=== PATIENT | female | born 1995 | race Caucasian/White ===

== ENCOUNTER 2023-10-12 16:51 | Emergency (ER) | payer SELFPAY ==
[2023-10-12 16:58] VITALS: BP 132/81; PULSE 73; RESP 18; TEMP 98.9; BMI 30.8
[2023-10-12 18:23] LABS: BASO % 0.4 % (0-2.0); EOS % 2.1 % (0-4.5); HEMATOCRIT 36.5 % (32.4-45.2); HEMOGLOBIN 12.3 GM/dL (10.7-15.3); LYMPH % 34.3 % (8-40); MCHC 33.7 g/dl (32.0-36.0); MEAN CELL VOLUME 85.9 fl (80-96); MEAN PLT VOLUME 8.6 fl (7.5-11.1); MONO % 5.5 % (3.8-10.2); NEUT % 57.7 % (42.8-82.8); PLATELET COUNT 297 10^3/uL (134-434); RBC 4.25 M/mm3 (3.60-5.2); RDW 12.6 % (11.6-15.6); WHITE BLOOD COUNT 11.8 K/mm3 (4.0-10.0)
[2023-10-12 18:26] LABS: EPI CELLS >36 /uL (0-25.1); HYALINE CASTS 1 /uL (0-3.1); URINE APPEARANCE CLOUDY; URINE BACTERIA >9,000 /uL (0-1359); URINE BILIRUBIN NEGATIVE (NEGATIVE); URINE COLOR YELLOW; URINE GLUCOSE (UA) NEGATIVE (NEGATIVE); URINE KETONE TRACE (NEGATIVE); URINE LEUK ESTERASE TRACE (NEGATIVE); URINE NITRITE POSITIVE (NEGATIVE); URINE PROTEIN TRACE (NEGATIVE); URINE RBC 33 /uL (0-23.9); URINE WBC 44 /uL (0-25.8)
[2023-10-12 18:47] LABS: POTASSIUM 3.8 mmol/L (3.5-5.1)
[2023-10-12 18:49] LABS: BLOOD UREA NITROGEN 8.7 mg/dL (7-18)
[2023-10-12 18:53] LABS: CREATININE 0.8 mg/dL (0.55-1.3)
[2023-10-12 18:54] LABS: BILIRUBIN,TOTAL 0.5 mg/dL (0.2-1); TOT PROT 7.7 g/dl (6.4-8.2)
[2023-10-12] MEDS ORDERED: CEPHALEXIN MONOHYDRATE 500 MG CAPSULE (UD) ONE (20:18)
[2023-10-12] MEDS: CEPHALEXIN MONOHYDRATE 500 MG CAPSULE (UD) PO ONE (20:20)
== END 2023-10-12 21:18 | disposition home or self-care (01) ==
LOC: JERFT 16:51 → JER 16:51 → JERFT 21:18
DX: O23.41 Unspecified infection of urinary tract in pregnancy, first trimester (principal); O26.891 Other specified pregnancy related conditions, first trimester; R10.2 Pelvic and perineal pain; Z3A.01 Less than 8 weeks gestation of pregnancy
CPT/HCPCS: 36415; 76817-TC; 80053; 81003; 84702; 84703; 85025; 87086; 87186; 99284-25

== ENCOUNTER 2024-06-09 10:00 | Inpatient (IN) | payer OTHER ==
[2024-06-09] MEDS: LACTATED RINGERS SOLUTION 1,000 ML/1,000 ML INFUS.BAG IV SCH (10:50)
[2024-06-09 11:38] VITALS: BMI 32.4
[2024-06-09 12:38] LABS: ABSOLUTE IMMATURE GRANULOCYTES 0.05 x10^3/uL (0.0-0.031); BASOPHILS # 0.02 x10^3/uL (0.01-0.08); EOSINOPHIL % 0.8 % (0.7-5.8); EOSINOPHILS # 0.09 x10^3/uL (0.04-0.36); HEMATOCRIT 35.6 % (34.1-44.9); HEMOGLOBIN 11.9 g/dL (11.2-15.7); MCHC 33.4 g/dl (32.2-35.5); MEAN CELL VOLUME 88.1 fl (79.4-94.8); MEAN PLT VOLUME 11.2 fl (9.4-12.3); MONOCYTE # 0.63 x10^3/uL (0.24-0.86); MONOCYTE % 5.9 % (4.7-12.5); PLATELET COUNT 204 x10^3/uL (182-369); RDW 12.7 % (12.1-16.5)
[2024-06-09 12:46] LABS: INR 1.03 (0.83-1.09); PROTHROMBIN TIME (PATIENT) 11.2 SEC (9.7-13.0)
[2024-06-09] MEDS ORDERED: OXYTOCIN 30 UNITS in 0.9% NS 30 UNIT/500 ML INFUS.BAG IVPB ONE (12:47)
[2024-06-09 12:49] LABS: ACTIVATED PTT 28.5 SECONDS (25.2-36.5)
[2024-06-09] MEDS: OXYTOCIN 30 UNITS in 0.9% NS 30 UNIT/500 ML INFUS.BAG IVPB SCH (13:00)
[2024-06-09 13:01] LABS: POTASSIUM 4.2 mmol/L (3.5-5.1)
[2024-06-09 13:02] LABS: CALCIUM 9.2 mg/dL (8.5-10.1)
[2024-06-09 13:03] LABS: BLOOD UREA NITROGEN 4.3 mg/dL (7-18)
[2024-06-09 13:06] LABS: CREATININE 0.6 mg/dL (0.55-1.3)
[2024-06-09] MEDS ORDERED: FENTANYL/BUPIVACAINE/NS/PF - PCEA - 50 ML DISP.SYRIN EP ONE (13:48)
[2024-06-09] MEDS: FENTANYL/BUPIVACAINE/NS/PF - PCEA - 50 ML DISP.SYRIN EP SCH (14:35)
[2024-06-09] MEDS ORDERED: NALOXONE HCL 0.4 MG/ML VIAL IVPUSH PRN (14:43)
[2024-06-09] MEDS ORDERED: OXYTOCIN 20 UNITS in 0.9% NS 20 UNIT/1,000 ML INFUS.BAG IV ONE (15:19)
[2024-06-09] MEDS: OXYTOCIN 20 UNITS in 0.9% NS 20 UNIT/1,000 ML INFUS.BAG IV ONE (16:40)
[2024-06-09 17:01] LABS: CORD BASE EXCESS -2.3 mmol/L (0-2); CORD HCO3 23.9 mmHg (20-29); CORD PCO2 46.2 mmHg (30-78); CORD pH 7.332 (7.14-7.44)
[2024-06-09] MEDS ORDERED: oxyCODONE HCL 5 MG TABLET PO PRN (17:06)
[2024-06-09] MEDS ORDERED: METHYLERGONOVINE MALEATE 0.2 MG/1 ML AMP IM PRN (17:06)
[2024-06-09] MEDS ORDERED: BENZOCAINE 20% 57 GM BOTTLE TP PRN (17:06)
[2024-06-09] MEDS ORDERED: BISACODYL 10 MG SUPP.RECT RC PRN (17:06)
[2024-06-09] MEDS ORDERED: BENZOCAINE 28 GM HEMORRHOIDAL OINTMENT TP PRN (17:06)
[2024-06-09] MEDS ORDERED: WITCH HAZEL 50% (TUCKS) 40 PAD/JAR PAD TP PRN (17:06)
[2024-06-09 17:11] LABS: CORD HCO3 25.5 mmHg (20-29); CORD PCO2 60.3 mmHg (30-78); CORD pH 7.244 (7.14-7.44)
[2024-06-09] MEDS: OXYTOCIN 20 UNITS in 0.9% NS 20 UNIT/1,000 ML INFUS.BAG IV SCH (19:56)
[2024-06-09] MEDS: IBUPROFEN 600 MG TABLET (FP) PO PRN (23:48)
[2024-06-10 06:37] LABS: ABSOLUTE IMMATURE GRANULOCYTES 0.05 x10^3/uL (0.0-0.031); BASOPHILS # 0.05 x10^3/uL (0.01-0.08); EOSINOPHILS # 0.13 x10^3/uL (0.04-0.36); HEMATOCRIT 30.8 % (34.1-44.9); HEMOGLOBIN 10.2 g/dL (11.2-15.7); MCHC 33.1 g/dl (32.2-35.5); MEAN PLT VOLUME 11.6 fl (9.4-12.3); MONOCYTE % 6.9 % (4.7-12.5); PLATELET COUNT 189 x10^3/uL (182-369); RDW 12.8 % (12.1-16.5)
[2024-06-10] MEDS: ACETAMINOPHEN 325 MG TABLET (FP) PO PRN (10:45)
[2024-06-10] MEDS ORDERED: SENNOSIDES/DOCUSATE COMBO (SENNA PLUS) TABLET (UD) PO PRN (22:00)
[2024-06-11 09:29] VITALS: BP 100/60; PULSE 69; RESP 17; TEMP 98.1
== END 2024-06-11 15:10 | disposition home or self-care (01) | DRG 560 ==
LOC: JDEL 10:00 → JLDR 10:45 → J3W 19:55
PROVIDERS: ADMIT Family Medicine; ATTEND Family Medicine
PROC: 10E0XZZ Delivery of Products of Conception, External Approach (ICD-10-PCS; principal; 2024-06-09)
PROC: 0KQM0ZZ Repair Perineum Muscle, Open Approach (ICD-10-PCS; 2024-06-09)
PROC: 0W8NXZZ Division of Female Perineum, External Approach (ICD-10-PCS; 2024-06-09)
DX: O70.1 Second degree perineal laceration during delivery (principal); Z3A.39 39 weeks gestation of pregnancy; Z37.0 Single live birth
CPT/HCPCS: 36415; 36600; 59025; 59409; 80048; 82803; 85025; 85610; 85730; 86780; 86850; 86900; 86901